=== PATIENT | male | born 1960 | race Caucasian/White ===

== ENCOUNTER 2016-08-03 01:37 | Inpatient (IN) | payer OTHER ==
--- NOTE | 2016-08-01 16:13 | History & Physical Pre-Op ---
General Information and HPI History of Present Illness: PATIENT: PHILLIP CAPONE PRESENT AGE: 55 PATIENT ACCOUNT NO: [id number] DATE OF : 58 ADMIT/SERVICE DATE: 03/26/14 ATTENDING PHYSICIAN: CAREY ISIDRO MD PATIENT CARE UNIT CONFIDENTIAL COPY General Information and HPI MD Statement: I have seen and personally examined PHILLIP CAPONE and documented this H&P. The patient is a 55 year old M who presented with a patient stated chief complaint of "dull", "achy" central low back pain radiating above his buttocks, bilaterally, and radiating to his left leg with weakness in his left foot x 6 months. Source of Information: patient, old records Exam Limitations: no limitations History of Present Illness: Phillip is a 55-year-old male who jumped off of a boat approximately 6 months ago which precipitated central low back pain which he describes as a "dull", "achy" pain that radiates bilaterally above his buttocks and into his left leg and foot with associated weakness in his left foot. He does also experience intermittent numbness in his toes on the left side. Phillip states that his symptoms have been progressively worsening to the point where he now is unable to stand for periods greater than 5 minutes without experiencing symptoms of classic neurogenic claudication. He denies any right sided symptoms at this time. He does rate his overall symptoms as a 4-5/10 in intensity. He also denies any bowel or bladder changes. Phillip has participated in chiropractic treatment in the past but has not tried any other self treatment other than activity modification since this recent injury. Phillip is status post left L4-5 and L5-S1 microdiscectomy with local bone fusion from March 2014 and had complete resolution of his symptoms after that surgery. Due to the fact that Phillip does have known degenerative disc disease, spondylolisthesis, and significant spinal stenosis confirmed on his MRI scan as well as his progressively worsening symptoms, he wants nothing more to do with conservative measures and wants to proceed with a Revision posterior lumbar decompression fusion L4-S1 with instrumentation and iliac crest bone grafting on 08/03/2016. Allergies/Medications Allergies: Coded Allergies: NO KNOWN ALLERGIES (03/25/14) Home Med list Calcium Carbonate/Vitamin D3 (Calcium 500 + D Tablet) 500 MG-400 TABLET 1 TAB PO BID bone health (Reported) CETIRIZINE HCL (Zyrtec) 10 MG CAPSULE 1 CAP PO DAILY PRN ALLERGY SYMPTOMS ( Reported) Glucosamine Sulfate (Glucosamine) 500 MG CAP 1 TAB PO DAILY SUPPLEMENT ( Reported) Multivitamin (Multiple Vitamins) 1 EACH TABLET 1 TAB PO DAILY SUPPLEMENT ( Reported) Compliance With Home Meds: GOOD Past History Medical History Blood Transfusion Hx: No Neurological: NONE EENT: allergies Cardiovascular: cardiomyopathy Respiratory: NONE Gastrointestinal: NONE Hepatic: NONE Renal: NONE Musculoskeletal: chronic back pain, disk herniation, degen joint disease, osteoarthritis, sciatica, spinal stenosis Psychiatric: NONE Endocrine: NONE Blood Disorders: NONE Cancer(s): NONE TREAD CUTTER/Reproductive: NONE History of MRSA: No History of VRE: No History of CDIFF: No Isolation History: Standard Surgical History Pertinent Surgical History: spinal fusion, s/p T&A, s/p Left L4-5, L5-S1 Microdiscectomy/local bone fusion 03/26/14 Past Family/Social History Family History Relations & Conditions if any MOTHER (brain aneurysmASCVDHypertension). , Age 72. FATHER (Alive and Well). Age 91. Psychosocial History Where Do You Live? Home Who Do You Live With? 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 Exam & Diagnostic Data Physical Exam: Height: 5 feet 2 inches Weight: 140 pounds Assessment/Plan Assessment/Plan: Assessment: 1. Grade 1 spondylolisthesis at L5-S1 with left sided spinal stenosis, scoliosis, retrolisthesis at L4-5 with right sided spinal stenosis and facet arthrosis, degenerative disc disease at both L4-5 and L5-S1. 2. Hayfever 3. History of cardiomyopathy 4. Osteoarthritis of the hands Plan: Phillip is scheduled for a revision posterior lumbar decompression fusion L4-S1 with instrumentation and iliac crest bone grafting on 08/03/2016. We discussed the procedure in full detail. We also discussed the pre-and postoperative course, follow-up care and instructions, and anticipated recovery. We also discussed the risks of surgery not to exclude , paralysis, infection, bleeding, continued pain, failure of the surgery, need for future surgery, DVT, vascular injury, CSF leak, etc., and given these risks, he still wishes to proceed. Phillip has been seen and evaluated by his primary care physician and has been given surgical clearance. Any changes in this patient's plan is based on the patient's outpatient clinical presentation. As Ranked By This Provider Problem List: 1. Cardiomyopathy 2. Hayfever 3. Osteoarthritis of both hands Attending MD Review Statement Attending Statement Attending MD Statement: examined this patient, discuss w/resident/PA/DIRECTOR RADIATION ONCOLOGY, agreed w/resident/VIRGILIO/DIRECTOR RADIATION ONCOLOGY, reviewed images DICTATED BY: COLE OLVERA PA-C DATE/TIME DICTATED:07/19/161435 CASE PREPARER AND LINER:CATINA DATE/TIME TRANSCRIBED:07/19/161435 REPORT NUMBER:[id number] CONFIDENTIAL, DO NOT COPY WITHOUT APPROPRIATE AUTHORIZATION. Allergies/Medications Allergies: Coded Allergies: No Known Allergies (08/02/16) Home Med list Calcium Carbonate/Vitamin D3 (Calcium 500 + D Tablet) 500 MG-400 TABLET 1 TAB PO BID bone health (Reported) CETIRIZINE HCL (Zyrtec) 10 MG CAPSULE 1 CAP PO DAILY PRN ALLERGY SYMPTOMS ( Reported) Glucosamine Sulfate (Glucosamine) 500 MG CAP 1 TAB PO DAILY SUPPLEMENT ( Reported) Multivitamin (Multiple Vitamins) 1 EACH TABLET 1 TAB PO DAILY SUPPLEMENT ( Reported) Past History Medical History Neurological: NONE EENT: allergies Cardiovascular: CARDIOMEGALY Respiratory: NONE Gastrointestinal: NONE Hepatic: NONE Renal: NONE Musculoskeletal: chronic back pain, disk herniation, degen joint disease, osteoarthritis, sciatica, spinal stenosis Psychiatric: NONE Endocrine: NONE Blood Disorders: NONE Cancer(s): NONE TREAD CUTTER/Reproductive: NONE History of MRSA: No History of VRE: No History of CDIFF: No Surgical History Pertinent Surgical History: spinal fusion, s/p T&A s/p Left L4-5, L5-S1 Microdiscectomy/local bone fusion 03/26/14 Past Family/Social History Family History Relations & Conditions if any MOTHER (brain aneurysmASCVDHypertension). , Age 72. FATHER (Alive and Well). Age 91. Psychosocial History Who Do You Live With? spouse Services at Home None Primary Language: German Exam & Diagnostic Data Last 24 Hrs of Vital Signs/I&O Intake & Output 08/03 0800 08/03 0000 08/02 1600 Intake Total Output Total Balance Patient 143 lb Weight Physical Exam: WEIGHT: 140LBS. HEIGHT:5'2" Physical Exam General Appearance Alert, Oriented X3, Cooperative, No Acute Distress Skin No Rashes, No Breakdown, No Significant Lesion HEENT Atraumatic, PERRLA, EOMI, Mucous Membr. moist/pink Neck Supple, No JVD, No thryomegaly, +2 Carotid Pulse wo Bruit Lymphatic Cervical nl Cardiovascular Regular Rate, Normal S1, Normal S2, No Murmurs Lungs Clear to Auscultation Abdomen Normal Bowel Sounds, Soft, No Tenderness, No Hepatospenomegaly, No Masses Neurological Normal Gait, Normal Speech, Strength at 5/5 X4 Ext, Normal Tone, Sensation Intact, Reflexes 2+, + SLR LEFT Extremities No Clubbing, No Cyanosis, No Edema, Normal Pulses Vascular Normal Pulses Assessment/Plan Assessment/Plan: Assessment: Grade I Spondylolisthesis L5S1, Retro L45 Plan: Revision PLDF L4-S1 with Instr./ICBG We discussed the plan, risks, and benefits. Any changesd in the plan is based on the patient's outpatient presentation. As Ranked By This Provider Problem List: 1. Hayfever 2. Osteoarthritis of both hands Attending MD Review Statement Attending Statement Attending MD Statement: examined this patient, discuss w/resident/PA/DIRECTOR RADIATION ONCOLOGY, agreed w/resident/PA/DIRECTOR RADIATION ONCOLOGY, reviewed images
[~2016-08-03] VITALS: Ht 157.5 cm; Wt 64.4 kg
[~2016-08-03 01:37] MED LIST: CALCIUM 500 +1 EAC5 PO; GLUCOSAMINE500 MG PO; MULTIVITAMIN1 TAB PO; ZYRTEC ALLERGY10 MG PO
--- NOTE | 2016-08-03 13:43 | Operative Report ---
Operative/Inv Procedure Report Surgery Date: 08/03/16 Name of Procedure: Inspection of fusion mass. Laminectomy discectomy L4 5 L5-S1 interdiscal cage placement L5-S1 pedicle screw fixation L4 5 S1 lateral autologous bone graft fusion L4 to S1 harvesting of morselized bone graft right posterior iliac crest. Reconstruction of donor site with Master graft. Neuro lysis left L5 and S1 nerve roots use of fluoroscopy. Pre-Operative Diagnosis: Spondylolisthesis and disc herniation L4 5 L5-S1 Post-Operative Diagnosis: Same Estimated Blood Loss: 600ml Surgeon/Bilingual Middle School Teacher: DWAINE CHIN,CAREY Capellan M.D. Anesthesia: general endotracheal tube Monitors: Neuro monitoring Operative/Procedure Note Note: After adequate general anesthesia was achieved the patient was placed in the prone position. The Cell Saver was used throughout the surgery. The back and right posterior iliac crest were sterilely prepped and draped. The previous incision was sharply excised. The dissection was carried bilaterally over the dorsal elements. Deep retractors were placed. The fusion mass was inspected and there was an obvious pseudoarthrosis at L5-S1. The bone graft and scar tissue was removed with the Leksell and curettes. The previous laminectomy site was easily identified. The Armstrong fragment was entirely removed at L5. Laminectomies were performed at L4 5 and L5-S1. There was severe scar tissue adherent to the L5 and S1 nerves on the left and the neural lysis was performed freeing up both nerve roots. The discectomy was performed at L4 5 as well as the laminectomies. This was performed on the left side. Corticotomies were created in the pedicles at L4-L5 and S1 bilaterally. Instrumentation was used to prepare the pedicle screws this was performed with fluoroscopy and the ball tip probe was used to evaluate the pedicle canal. Excellent purchase was achieved with the 6 screws. The L5-S1 disc was gently described distracted using a one-sided socorro to gain access to the disc space and help facilitate reduction of the spondylolisthesis. The discectomy was performed at L5-S1 and the endplates were debrided with the rasp in preparation for placement of the cage. An 8 mm cage was selected. An incision was made over the right posterior iliac crest and carried down laterally and the Joellen retractor was placed. Osteotomes and curettes were used to collect morcellized corticocancellous and cancellous bone. The wound was copiously irrigated packed with Master graft and Gelfoam and closed in layers with absorbable suture with nylon and skin. The graft was packed with moist morselized cancellous bone. The construct was tamped within the disc space. It was well away from the nerve roots and very stable. The distraction on the socorro was released it was then compressed and tightened. A similar procedure was performed with placement of the socorro and compression on the left side. The facets were decorticated with a pencil point bur at L4 5. The lateral intertransverse process region was decorticated with the high-speed bur from L4 to the sacrum. Bone graft was packed laterally swells over the facet joints of L4 5 on extended from L4 to S1. The wound was irrigated Gelfoam was laid over the laminotomy sites and a closure was performed with absorbable suture and the lumbodorsal fascia as well as subcutaneous tissue skin was closed with a subcuticular nylon stitch. Sterile dressings were applied and patient was transferred to the stretcher.
[2016-08-03 14:07] LABS: ABSOLUTE BASOPHIL COUNT 0 /CUMM (0.0-0.2); ABSOLUTE EOSINOPHIL COUNT 0.2 /CUMM (0.0-0.7); ABSOLUTE GRANULOCYTE CT 13.2 /CUMM (1.4-6.5); ABSOLUTE LYMPH COUNT 1.6 /CUMM (1.2-3.4); ABSOLUTE MONOCYTE COUNT 0.5 /CUMM (0.10-0.60); BASOPHIL % 0.2 % (0.0-2.0); MEAN CORPUSCULAR HGB 29.5 PG (27.0-31.0); MEAN CORPUSCULAR HGB CONC 33.9 G/DL (33.0-37.0); MEAN CORPUSCULAR VOLUME 86.8 FL (80.0-94.0); PLATELET COUNT 185 /CUMM (130-400); RBC DISTRIBUTION WIDTH 13.5 % (11.5-14.5); RED BLOOD CELL CT 4.41 /CUMM (4.70-6.10)
--- NOTE | 2016-08-03 14:10 | Patient Discharge Instructions ---
Acute Coronary Syndrome Inclusion Criteria At DC or during hospital stay patient has or had the following: ACS DIAGNOSIS No Discharge Core Measures Meds if any: Prescribed or Continued at Discharge Meds if any: NOT Prescribed or Continued at Discharge Congestive Heart Failure Inclusion Criteria At DC or during hospital stay patient has or had the following: CHF DIAGNOSIS No Discharge Core Measures Meds if any: Prescribed or Continued at Discharge Meds if any: NOT Prescribed or Continued at Discharge Cerebrovascular accident Inclusion Criteria At DC or during hospital stay patient has or had the following: CVA/TIA Diagnosis No Discharge Core Measures Meds if any: Prescribed or Continued at Discharge Meds if any: NOT Prescribed or Continued at Discharge Venous thromboembolism Inclusion Criteria VTE Diagnosis No VTE Type NONE VTE Confirmed by (Test) NONE Discharge Core Measures - Per Current guidelines, there needs to be overlap - treatment for the first 5 days of Warfarin therapy. - If discharged on Warfarin prior to 5 days of - overlap therapy, the patient will need to be - assessed for post discharge needs including - *Post discharge parental anticoagulation - *Warfarin and/or parental anticoagulation education - *Follow up date to check INR post discharge At least 5 days overlap therapy as Inpatient No Meds if any: Prescribed or Continued at Discharge Note: Overlap Therapy is Warfarin and Anticoagulant Meds if any: NOT Prescribed or Continued at Discharge
[2016-08-03] MEDS ORDERED: PERCOCET 5-3251 EACH PO (14:13)
[2016-08-03 14:16] LABS: GRANULOCYTE % 85.2 % (42.2-75.2)
[2016-08-03 14:24] LABS: HEMATOCRIT 38.3 % (42-52); WHITE BLOOD CELL COUNT 15.5 /CUMM (4.8-10.8)
[2016-08-03 15:00] VITALS: BP 130/80
--- NOTE | 2016-08-03 15:34 | PN- Orthopedic ---
Subjective Subjective: The patient was seen this afternoon postoperatively. He reports that her pain is under adequate control and just has some mild back spasms. He has no other complaints of current time and denies any weakness, numbness, or tingling in his extremities. He reports that his preoperative left lower extremity pain is currently resolved. Objective Vital Signs and I&Os AF/VSS Intake & Output 08/03 1600 08/03 0800 08/03 0000 08/02 1600 08/02 0800 08/02 0000 Intake Total Output Total Balance Patient 143 lb Weight Physical Exam: Gen.: Alert and in no obvious distress Skin: Warm and dry Cardiac: S1-S2 regular Pulmonary: Bilateral breath sounds equal with good exchange Extremities: Patient moves all 4 extremities with equal strength. Gross motor and sensory are intact. Bilateral lower extremities warm without calf tenderness or significant edema. Back: Surgical dressing is clean, dry, and intact. Assessment/Plan Assessment/Plan Assessment: 55-year-old male status post lumbar decompression and fusion L4 through S1. Postoperatively the patient is progressing as expected, his pain is under adequate control, and he has a nonfocal neuro exam at the current time. Plan: Out of bed and ambulate Continue current pain regiment Advance diet as tolerated GI and DVT prophylaxis with Alps only no anticoagulation secondary to the nature of surgery. Strict I's and O's Resume home medications Follow-up morning laboratory studies 2 more doses of postoperative prophylactic antibiotics Core Measures/Miscellaneous Venous Thromboembolism VTE Risk Factors: Age > 40, Surgery VTE Contraindications: Severe Spine Trauma x4 wk No Pharm VTE Prophylaxis D/T: Surgical Contraindication VTE Diagnosis: No Beta Magnolia Is Beta Magnolia a Home Med? No Antibiotics Is Patient on Antibiotics? Yes If Yes: prophylaxis
[2016-08-03 19:10] VITALS: BP 148/96
[2016-08-03 21:40] VITALS: BP 150/80
[2016-08-04 06:18] VITALS: BP 138/72
[2016-08-04 06:48] LABS: ABSOLUTE BASOPHIL COUNT 0 /CUMM (0.0-0.2); ABSOLUTE EOSINOPHIL COUNT 0 /CUMM (0.0-0.7); ABSOLUTE GRANULOCYTE CT 7.9 /CUMM (1.4-6.5); ABSOLUTE LYMPH COUNT 1.4 /CUMM (1.2-3.4); ABSOLUTE MONOCYTE COUNT 0.8 /CUMM (0.10-0.60); BASOPHIL % 0.2 % (0.0-2.0); EOSINOPHIL % 0.1 % (0-5); GRANULOCYTE % 78.1 % (42.2-75.2); HEMATOCRIT 35.7 % (42-52); MEAN CORPUSCULAR HGB 29.7 PG (27.0-31.0); MEAN CORPUSCULAR HGB CONC 33.9 G/DL (33.0-37.0); MEAN CORPUSCULAR VOLUME 87.6 FL (80.0-94.0); MEAN PLATELET VOLUME 8.9 FL (7.4-10.4); PLATELET COUNT 191 /CUMM (130-400); RBC DISTRIBUTION WIDTH 13.1 % (11.5-14.5); RED BLOOD CELL CT 4.07 /CUMM (4.70-6.10); WHITE BLOOD CELL COUNT 10.1 /CUMM (4.8-10.8)
--- NOTE | 2016-08-04 14:27 | RADIOLOGY REPORT ---
EXAMINATION: Intraoperative fluoroscopy CLINICAL INFORMATION: Lumbar fusion COMPARISON: Intraoperative imaging 03/26/2014 TECHNIQUE: Intraoperative fluoroscopy was provided for use by Dr. Hogan. A total of 2 images were saved to PACS. TOTAL FLUOROSCOPIC TIME: 31 seconds FINDINGS\E\IMPRESSION: Intraoperative fluoroscopy provided for use by Dr. Hogan. Images demonstrate posterior hardware with fusion of L4, L5 and S1. Intervertebral disc spacer noted. Please see operative note for detailed findings.
[2016-08-04 14:34] VITALS: BP 132/80
--- NOTE | 2016-08-04 14:41 | PN- Orthopedic ---
Subjective Subjective: Patient c/o expected postop incisional pain. No preop leg pain. + postop left leg numbness which is improving. Improving strength in left leg. Pt. ambulated with PT and independently. Voiding without probs. + flatus. +mild nausea with Percocet. No CP/SOB, fever/chill, or dizziness. Tolerating po. Labs: WBC: 10.1 , Hgb/Hct: 12.1/35.7, Plt: 191 Review of Systems: Remarkable for the above complaints. Objective Vital Signs and I&Os Vital Signs Date Time Temp Pulse Resp B/P Pulse O2 O2 Flow FiO2 Ox Delivery Rate 08/04 1417 Room Air Room Air 08/04 1416 98 Room Air 08/04 0618 98.1 64 20 138/72 95 Room Air 08/03 2140 98.0 64 19 150/80 94 Room Air 08/03 1910 98.0 64 20 148/96 97 Room Air 08/03 1500 97 Nasal 2.0L Cannula 08/03 1500 98.1 80 16 130/80 97 Nasal 2.0L Cannula Intake & Output 08/04 1600 08/04 0800 08/04 0000 08/03 1600 08/03 0800 08/03 0000 Intake Total 800 2650 0 Output Total 499 020 0336 0 Balance 50 -400 -50 0 Intake, IV 1500 0 Intake, Oral 800 1150 Number 0 Bowel Movements Output, Urine 365 058 6711 0 Patient 142 lb Weight Physical Exam General Appearance: well developed/nourished, no apparent distress, alert, awake , comfortable, mild distress Head: atraumatic, normal appearance Respiratory: normal breath sounds, no respiratory distress Cardiovascular: regular rate/rhythm Peripheral Pulses: 2+ tibialis posterior (R), 2+ tibialis posterior (L), 2+ dorsalis pedis (R), 2+ dorsalis pedis (L) Abdomen: normal bowel sounds, soft, non-tender Back: Incision: C/D/I, Dressings changed. Extremities: normal inspection, normal capillary refill, straight leg raised, +3 /5 left EHL, Neurovascularly stable , + right patellar, and stephanie. achilles reflexes. Slightly sluggish left patellar reflex. Neurologic/Psychiatric: awake, alert, oriented x 3, normal gait Reflexes: 1+: knee (L). 2+: knee (R), ankle (R), ankle (L). Skin: intact, normal color, warm/dry Assessment/Plan Assessment/Plan Assessment: s/p Revision PLDF L4-S1 with Instr/ICBG Plan: Continue with Percocet Ambulate with PT Ice prn Do's and Dont's explained Disch. Instr. given Will F/U in am Probable D/C home in am if cleared by PT Core Measures/Miscellaneous Venous Thromboembolism VTE Risk Factors: Age > 40, Surgery VTE Contraindications: Severe Spine Trauma x4 wk No Pharm VTE Prophylaxis D/T: Surgical Contraindication VTE Diagnosis: No Beta Magnolia Is Beta Magnolia a Home Med? No Antibiotics Is Patient on Antibiotics? Yes If Yes: prophylaxis Attending MD Review Statement Attending Statement Attending MD Statement: examined this patient, discuss w/resident/PA/CONSTRUCTION MANAGER, agreed w/resident/PA/CONSTRUCTION MANAGER
--- NOTE | 2016-08-04 15:51 | Surg Short-stay <48hrs Dis Sum ---
See Addendum Visit Information Visit Dates Admission Date: 08/03/16 Discharge Date: 08/05/16 Surgical Short Stay DC Summary Admission Diagnosis: Spondylolisthesis and disc herniation L4 5 L5-S1 Final Diagnosis: Spondylolisthesis and disc herniation L4 5 L5-S1 Procedure(s): Inspection of fusion mass. Laminectomy discectomy L4 5 L5-S1 interdiscal cage placement L5-S1 pedicle screw fixation L4 5 S1 lateral autologous bone graft fusion L4 to S1 harvesting of morselized bone graft right posterior iliac crest. Reconstruction of donor site with Master graft. Neuro lysis left L5 and S1 nerve roots use of fluoroscopy. Summary/Significant Findings: Mr. Del Angel is a 55 year old male found to have spondolisthesis of L4-S1. He was taken to the OR and underwent a lumbar laminectomy with fusion of L4-S1 by Dr. Hogan. He did well intraoperatively, and was transferred to the surgical floor in stable condition. His diet was advanced, pain was controlled, and he was able to void spontaneously. On POD #1, he was evaluated by physical therapy. He continued to progress well and was discharged on POD #2 with outpatient follow up with Dr. Hogan. Condition at Discharge: stable Discharge Disposition: home or self care Discharge instructions provided to patient/family: Yes Post discharge follow-up plan: Dr. Hogan
[2016-08-04 21:24] VITALS: BP 144/84
[2016-08-05] MEDS ORDERED: BISAC-EVAC10 M1 PR (07:31)
[2016-08-05] MEDS ORDERED: MILK OF MA400 MG/52 PO (07:32)
[2016-08-05 07:41] VITALS: BP 136/86
[2016-08-05] MEDS ORDERED: IBUPROFEN400 M1 PO (07:53)
--- NOTE | 2016-08-05 07:53 | PN- Orthopedic ---
See Addendum Subjective Subjective: POD #2 s/p L4-S1 lumbar laminectomy/fusion. Had nausea overnight with 1 episode of vomiting, attributing to percocet administration. Asking for ibuprofen. Tolerating a regular diet. Voiding spontaneously. Objective Vital Signs and I&Os Vital Signs Date Time Temp Pulse Resp B/P Pulse O2 O2 Flow FiO2 Ox Delivery Rate 08/04 212 97.8 82 20 144/84 96 Room Air 08/04 1434 98.6 65 20 132/80 96 Room Air 08/04 1417 Room Air Room Air 08/04 1416 98 Room Air Intake & Output 08/05 0800 08/05 0000 08/04 1600 08/04 0800 08/04 0000 08/03 1600 Intake Total 943 956 1102 0 Output Total 900 173 576 3588 0 Balance -600 50 -400 -50 0 Intake, IV 1500 0 Intake, Oral 104 109 9910 Number 0 Bowel Movements Output, Urine 900 440 193 4362 0 Patient 142 lb Weight Physical Exam: Gen: [id number] NAD Cor: S1+S2+ Lungs: CTA stephanie Abd: soft, NT, ND, +BS x4 Back: dressing changed. Incision C/D/I with sutures. No surrounding erythema or drainage noted. Ext: palpable DP pulses stephanie. Current Medications: Current Medications Sig/Teofilo Start time Last Medication Dose Route Stop Time Status Admin Acetaminophen 650 MG Q4P PRN 08/03 1400 AC PO Bisacodyl 10 MG DAILY NEEDED PRN 08/03 1400 AC LA Calcium/Vitamin D 500 MG BID 08/03 2200 AC 08/04 PO 0849 Cefazolin Sodium 1,000 MG IQ8 08/03 1600 DC 08/04 IV 08/04 0801 0759 Chlorpromazine 25 MG TID PRN 08/04 2115 AC PO Docusate Sodium 100 MG TID 08/03 1600 AC 08/04 PO 2019 Lactated Ringer's 1,000 ML Q10H 08/03 1415 DC 08/03 IV 1748 Loratadine 10 MG DAILY 08/04 1000 AC PO Magnesium Hydroxide 30 ML Q8P PRN 08/03 1415 AC PO Morphine Sulfate 2 MG Q3P PRN 08/03 1400 AC 08/05 IV 0123 Multivitamins 1 TAB DAILY 08/04 1000 AC 08/04 Therapeutic PO 0849 Ondansetron HCl 4 MG Q6P PRN 08/03 1400 AC IV Oxycodone/ 1 TAB Q4P PRN 08/03 1400 AC 08/05 Acetaminophen PO 0548 Oxycodone/ 2 TAB Q4P PRN 08/03 1400 AC 08/04 Acetaminophen PO 1032 Patient Medication 1 ED .STK-MED ONE 08/04 1304 DC [facility] ED 08/04 1305 Trimethobenzamide HCl 200 MG Q6P PRN 08/03 1400 AC 08/04 IM 2019 Results Last 48 Hours of Labs: Laboratory Tests 08/04 08/03 0620 UNK Hematology CBC w Diff NO MAN DIFF REQ MAN DIFF ORDERED WBC (4.8 - 10.8 /CUMM) 10.1 15.5 H RBC (4.70 - 6.10 /CUMM) 4.07 L 4.41 L Hgb (14.0 - 18.0 G/DL) 12.1 L 13.0 L Hct (42 - 52 %) 35.7 L 38.3 L MCV (80.0 - 94.0 FL) 87.6 86.8 MCH (27.0 - 31.0 PG) 29.7 29.5 RDW (11.5 - 14.5 %) 13.1 13.5 Plt Count (130 - 400 /CUMM) 191 185 MPV (7.4 - 10.4 FL) 8.9 8.0 Gran % (42.2 - 75.2 %) 78.1 H 85.2 H Lymphocytes % (20.5 - 51.1 %) 13.9 L 10.5 L Monocytes % (1.7 - 9.3 %) 7.7 3.1 Eosinophils % (0 - 5 %) 0.1 1.0 Basophils % (0.0 - 2.0 %) 0.2 0.2 Absolute Granulocytes (1.4 - 6.5 /CUMM) 7.9 H 13.2 H Segmented Neutrophils (42.2 - 75.2 %) 77 H Band Neutrophils (0.0 - 5.0 %) 5 Absolute Lymphocytes (1.2 - 3.4 /CUMM) 1.4 1.6 Lymphocytes (20.5 - 51.1 %) 16 L Monocytes (1.7 - 9.3 %) 1 L Absolute Monocytes (0.10 - 0.60 /CUMM) 0.8 H 0.5 Eosinophils (0 - 5.0 %) 1 Absolute Eosinophils (0.0 - 0.7 /CUMM) 0 0.2 Absolute Basophils (0.0 - 0.2 /CUMM) 0 0 Platelet Estimate (ADEQUATE) VERIFIED BY SMEAR Normocytic RBCs VERIFIED Normochromic RBCs VERIFIED PUBS MCHC (33.0 - 37.0 G/DL) 33.9 33.9 Assessment/Plan Assessment/Plan A: POD #2 s/p L4-S1 lumbar laminectomy with fusion; AVSS. Plan: Ibuprofen ordered. Will take on discharge. OOB and ambulate. D/C home today. Core Measures/Miscellaneous Venous Thromboembolism VTE Risk Factors: Age > 40, Surgery VTE Contraindications: Severe Spine Trauma x4 wk No Pharm VTE Prophylaxis D/T: Surgical Contraindication VTE Diagnosis: No Beta Magnolia Is Beta Magnolia a Home Med? No Antibiotics Is Patient on Antibiotics? Yes If Yes: prophylaxis
[2016-08-05] MEDS ORDERED: TYLENOL325 M1 PO (08:05)
[2016-08-05] MEDS ORDERED: DOCUSATE SODIU100 M3 PO (08:58)
--- NOTE | 2016-08-05 10:28 | NUR ---
NURSING NOTE: PT TO BE DISCHARGED. UNABLE TO UPDATE TIMES ON CMR FOR ZYRTEC AND MVI, AFTER MULTIPLE ATTMEPTS PA UNABLE TO FIX PROBLEM. TIMES WRITTEN IN FOR THESE MEDICATIONS AND DISCHARGE INSTRUCTIONS REVIEWED WITH PT AND .
== END 2016-08-05 14:11 | DRG 460 ==
LOC: ENRESERVTM → ENRESERVDT → SDA 01:37 → ENPENDDIS 01:37 → 2NB 14:58
PROVIDERS: Orthopaedic Surgery Orthopaedic Surgery of the Spine; ADMIT Orthopaedic Surgery Orthopaedic Surgery of the Spine
PROC: 07DR3ZZ Extraction of Iliac Bone Marrow, Percutaneous Approach (ICD-10-PCS; principal; 2016-08-03)
PROC: 0ST40ZZ Resection of Lumbosacral Disc, Open Approach (ICD-10-PCS; principal; 2016-08-03)
PROC: 0ST20ZZ Resection of Lumbar Vertebral Disc, Open Approach (ICD-10-PCS; principal; 2016-08-03)
PROC: 0SG30AJ Fusion of Lumbosacral Joint with Interbody Fusion Device, Posterior Approach, Anterior Column, Open Approach (ICD-10-PCS; principal; 2016-08-03)
DX: M43.16 Spondylolisthesis, lumbar region (principal); M43.17 Spondylolisthesis, lumbosacral region
CPT/HCPCS: 72100; 87086; 97116-GO; 97161-GP; 97530-GO; C1713; J0131; J0690; J1644; J3230; J3250; J3490; J7120